=== PATIENT | female | born 1955 | race Hispanic/Latino ===

== ENCOUNTER → 2023-04-02 | Day surgery (SDC) | payer OTHER ==
[2023-03-26 10:45] LABS: BASOPHILS % 0.7 % (0.0-1.0); EOSINOPHILS # (AUTO) 0.1 (0.0-0.4); EOSINOPHILS % 2.4 % (0.0-6.0); HEMATOCRIT 37.4 % (34.2-44.1); HEMOGLOBIN 12.8 g/dL (12.0-16.0); LYMPHOCYTES # (AUTO) 0.4 (1.0-3.2); LYMPHOCYTES % 13.1 % (18.0-39.1); MEAN CORPUSCULAR HEMOGLOBIN 32.3 pg (28-32); MEAN CORPUSCULAR HGB CONC 34.2 g/dL (31-35); MEAN CORPUSCULAR VOLUME 94.4 fL (81-99); MONOCYTES # (AUTO) 0.3 (0.2-0.8); MONOCYTES % 11.8 % (4.4-11.3); NEUTROPHILS # (AUTO) 2.1 (2.1-6.9); NEUTROPHILS % 71.7 % (38.7-80.0); PLATELET COUNT 219 x10e3/uL (140-360); RED BLOOD COUNT 3.96 x10e6/uL (3.6-5.1); RED CELL DISTRIBUTION WIDTH 11.9 % (11.7-14.4); WHITE BLOOD COUNT 2.89 x10e3/uL (4.8-10.8)
[2023-03-26 11:02] LABS: INR 0.99; PROTHROMBIN TIME 13.3 seconds (11.9-14.5)
[2023-03-26 11:04] LABS: ANION GAP 11.8 mmol/L (8-16); BILIRUBIN,TOTAL 0.7 mg/dL (0.2-1.2); CALCIUM 9.1 mg/dL (8.4-10.2); CREATININE, SERUM 0.65 mg/dL (0.57-1.11); POTASSIUM 3.8 mmol/L (3.5-5.1); TOTAL PROTEIN 7.9 g/dL (6.5-8.1)
[~2023-04-02] MED LIST: AMLODIPINE BESYL5 MG PO; AMOXICILLIN500 MG PO; BAYER BACK & B1 EACH PO; FAMOTIDINE20 MG PO; IMURAN50 MG PO; LACTATED RINGER'S 1,000 ML ONE; LISINOPRIL10 MG PO; OMEGA 3 1,0001 EACH PO; PLAQUENIL200 MG PO; PROTONIX20 MG PO
[2023-04-02 08:05] VITALS: BP 130/72; PULSE 65; RESP 14; O2SAT 99
== END | disposition home or self-care (01) ==
LOC: OR 05:44
PROVIDERS: ATTEND Internal Medicine Gastroenterology
DX: Z12.11 Encounter for screening for malignant neoplasm of colon (principal); D12.3 Benign neoplasm of transverse colon; K29.50 Unspecified chronic gastritis without bleeding; K44.9 Diaphragmatic hernia without obstruction or gangrene; K57.30 Diverticulosis of large intestine without perforation or abscess without bleeding; K64.8 Other hemorrhoids; K75.4 Autoimmune hepatitis; I10 Essential (primary) hypertension; K21.9 Gastro-esophageal reflux disease without esophagitis; M06.9 Rheumatoid arthritis, unspecified; M35.00 Sjogren syndrome, unspecified; I45.10 Unspecified right bundle-branch block; I44.4 Left anterior fascicular block; Z88.8 Allergy status to other drugs, medicaments and biological substances; Z01.810 Encounter for preprocedural cardiovascular examination; Z01.812 Encounter for preprocedural laboratory examination; Z79.899 Other long term (current) drug therapy
CPT/HCPCS: 36415; 43239; 45380; 80053; 85025; 85610; 85730; 88305; 88342; 93005; J7121; 45384